=== PATIENT | male | born 1960 | race Caucasian/White ===

== ENCOUNTER 2016-10-29 09:31 | Day surgery (SDC) | payer BC, OTHER ==
[2016-10-26 14:29] VITALS: BMI 28.2
[2016-10-29] MEDS ORDERED: LIDOCAINE HCL/PF 1% SDV 5ML VIAL ONE (09:49)
[2016-10-29] MEDS ORDERED: PROPOFOL 20 ML ONE ×3 (09:50)
[2016-10-29 11:17] VITALS: TEMP 97.3
[2016-10-29 12:16] VITALS: BP 115/73; PULSE 51
--- NOTE | 2016-10-30 13:54 | PATH ---
Surgical Pathology Report Patient Name: KIEL DAVEY [facility]. Rec. #: [id number] /Age/Gender: 1960 (Age: 55) / M Account: [id number] Location: [facility]-ENDOSCOPY Taken: 10/29/2016 Received: 10/29/2016 Reported: 10/30/2016 Physicians: Jaquelin Avery M.D. Specimen(s) Received A: BX 2ND PORTION DUODENUM & BULB B: BX ANTRUM C: BX Z-LINE D: BX MID ESOPHAGUS E: POLYP HEPATIC FLEXURE F: POLYP SPLENIC FLEXURE G: POLYPS SIGMOID Clinical History History of Billings's and polyps Atrophic gastritis, reflux Final Diagnosis A. DUODENUM, SECOND PORTION AND BULB, BIOPSY: DUODENAL MUCOSA WITH CHRONIC INFLAMMATION WITH FOCAL NAT'S GLANDS HYPERPLASIA AND FOCAL GASTRIC METAPLASIA CONSISTENT WITH PEPTIC DUODENITIS. NO HISTOLOGIC EVIDENCE OF GLUTEN SENSITIVE ENTEROPATHY (CELIAC DISEASE). B. STOMACH, ANTRUM, BIOPSY: GASTRIC ANTRAL MUCOSA WITH MODERATE CHRONIC GASTRITIS AND MILD REACTIVE GASTROPATHY. IMMUNOSTAIN FOR H. PYLORI IS NEGATIVE FOR ORGANISMS. C. Z-LINE, BIOPSY: SQUAMOUS EPITHELIUM WITH CHRONIC INFLAMMATION AND REFLUX CHANGES. NO COLUMNAR EPITHELIUM PRESENT (NO INTESTINAL METAPLASIA/BILLINGS'S ESOPHAGUS IDENTIFIED). D. ESOPHAGUS, MID, BIOPSY: SQUAMOUS EPITHELIUM IS CHRONIC INFLAMMATION AND MARKED REFLUX TYPE CHANGES. NO EVIDENCE OF EOSINOPHILIC ESOPHAGITIS. E. COLON, HEPATIC FLEXURE, POLYP, POLYPECTOMY: TUBULAR ADENOMA. F. COLON, SPLENIC FLEXURE, POLYP, POLYPECTOMY: FRAGMENTS OF TUBULAR ADENOMA. ADDITIONAL FRAGMENTS OF UNREMARKABLE COLONIC MUCOSA. G. COLON, SIGMOID, POLYPS, POLYPECTOMY: FRAGMENTS OF TUBULAR ADENOMA (X2). SEPARATE FRAGMENTS OF HYPERPLASTIC POLYPS. Electronically Signed Sina Loredo M.D. Gross Description A. Received in formalin, labeled "biopsy duodenum bulb and second portion" are 3 guaman, irregular portions of soft tissue ranging from 0.4-0.5 cm. in greatest dimension. The specimens are submitted in toto in one cassette. B. Received in formalin, labeled "biopsy antrum" are 4 guaman, irregular portions of soft tissue ranging from 0.2-0.7 cm in greatest dimension. The specimens are submitted in toto in one cassette. C. Received in formalin, labeled "biopsy Z-line" are 4 guaman, irregular portions of soft tissue ranging from 0.1-0.3 cm in greatest dimension. The specimens are submitted in toto in one cassette. D. Received in formalin, labeled "biopsy mid esophagus" are 2 guaman, irregular portions of soft tissue measuring 0.1 and 0.5 cm in greatest dimension. The specimens are submitted in toto in one cassette. E. Received in formalin, labeled "polyp hepatic flexure" is a guaman, irregular portion of soft tissue measuring 0.4 cm in greatest dimension. The specimen is submitted in toto in one cassette. F. Received in formalin, labeled "polyp splenic flexure" are 3 guaman, irregular portions of soft tissue ranging from 0.4-0.5 cm in greatest dimension. The specimens are submitted in toto in one cassette. G. Received in formalin, labeled "polyps sigmoid" are 3 guaman, irregular portions of soft tissue averaging 0.2 cm in greatest dimension. The specimens are submitted in toto in one cassette. 10/29/2016 [facility]10/29/2016
== END 2016-10-29 12:37 | disposition home or self-care (01) ==
LOC: JASU-ENDO 09:31
PROVIDERS: ATTEND Internal Medicine Gastroenterology
PROC: 0DB68ZX Excision of Stomach, Via Natural or Artificial Opening Endoscopic, Diagnostic (ICD-10-PCS; 2016-10-29)
PROC: 0DB28ZX Excision of Middle Esophagus, Via Natural or Artificial Opening Endoscopic, Diagnostic (ICD-10-PCS; 2016-10-29)
PROC: 0DBE8ZX Excision of Large Intestine, Via Natural or Artificial Opening Endoscopic, Diagnostic (ICD-10-PCS; 2016-10-29)
PROC: 0DBN8ZX Excision of Sigmoid Colon, Via Natural or Artificial Opening Endoscopic, Diagnostic (ICD-10-PCS; 2016-10-29)
PROC: 0DBE8ZX Excision of Large Intestine, Via Natural or Artificial Opening Endoscopic, Diagnostic (ICD-10-PCS; 2016-10-29)
PROC: 0DB38ZX Excision of Lower Esophagus, Via Natural or Artificial Opening Endoscopic, Diagnostic (ICD-10-PCS; principal; 2016-10-29 09:00)
DX: Z12.11 Encounter for screening for malignant neoplasm of colon (principal); Z80.0 Family history of malignant neoplasm of digestive organs; K63.5 Polyp of colon; D12.5 Benign neoplasm of sigmoid colon; K64.8 Other hemorrhoids; K21.9 Gastro-esophageal reflux disease without esophagitis; K44.9 Diaphragmatic hernia without obstruction or gangrene
CPT/HCPCS: 88305-TC; 88342-TC

== ENCOUNTER 2021-07-07 04:59 | Day surgery (SDC) | payer OTHER ==
[2021-07-05 14:16] VITALS: BMI 25.7
[2021-07-07 10:36] VITALS: TEMP 97.5
[2021-07-07 12:01] VITALS: BP 129/67; PULSE 47
== END 2021-07-07 11:55 | disposition home or self-care (01) ==
LOC: JASU-ENDO 04:59
PROVIDERS: ATTEND Internal Medicine Gastroenterology
PROC: 0DB98ZX Excision of Duodenum, Via Natural or Artificial Opening Endoscopic, Diagnostic (ICD-10-PCS; 2021-07-07)
PROC: 0DB78ZX Excision of Stomach, Pylorus, Via Natural or Artificial Opening Endoscopic, Diagnostic (ICD-10-PCS; 2021-07-07)
PROC: 0DB38ZX Excision of Lower Esophagus, Via Natural or Artificial Opening Endoscopic, Diagnostic (ICD-10-PCS; 2021-07-07)
PROC: 0DJD8ZZ Inspection of Lower Intestinal Tract, Via Natural or Artificial Opening Endoscopic (ICD-10-PCS; principal; 2021-07-07 09:48)
DX: Z12.11 Encounter for screening for malignant neoplasm of colon (principal); K21.00 Gastro-esophageal reflux disease with esophagitis, without bleeding; K29.50 Unspecified chronic gastritis without bleeding; K64.8 Other hemorrhoids; Z86.010 Personal history of colon polyps; Z80.0 Family history of malignant neoplasm of digestive organs
CPT/HCPCS: 43239; G0105; 88305-TC; 88342-TC